=== PATIENT | female | born 1990 | race Caucasian/White ===

== ENCOUNTER 2021-07-20 09:29 | Day surgery (SDC) | payer OTHER ==
[~2021-07-20 09:29] MED LIST: Acetaminophen 500 MG TAB PO PRN; Acetaminophen 500 MG TAB PO SCH; Sodium Chloride 0.9% 1,000 ML IV SCH; diphenhydrAMINE 25 MG CAP PO SCH; diphenhydrAMINE 50 MG/ML VIAL IVP PRN; diphenhydrAMINE 50 MG/ML VIAL IVP SCH
[2021-07-20] MEDS ORDERED: Sodium Chloride 0.9% 20 ML ONE (09:34)
[2021-07-20] MEDS ORDERED: INFLIXIMAB ABDA IV SCH (10:00)
[2021-07-20] MEDS ORDERED: SODIUM CHLORIDE 0.9% IV SCH (10:00)
[2021-07-20 13:40] VITALS: BP 135/79; TEMP 97.9
== END 2021-07-20 13:41 | disposition home or self-care (01) ==
LOC: ONC/OP 09:29
PROVIDERS: ATTEND Internal Medicine Rheumatology
DX: L40.50 Arthropathic psoriasis, unspecified (principal)
CPT/HCPCS: 96413; 96415; J7050; Q5104

== ENCOUNTER 2021-08-04 08:26 | Day surgery (SDC) | payer OTHER ==
[~2021-08-04 08:26] MED LIST changes: +INFLIXIMAB ABDA IV SCH; +INFLIXIMAB-ABDA 486 MG in Sodium Chloride 0.9% 250 ML 201.4 ML IV SCH; +SODIUM CHLORIDE 0.9% IV SCH
[2021-08-04] MEDS ORDERED: Sodium Chloride 0.9% 20 ML ONE (09:07)
[2021-08-04 09:57] VITALS: BP 141/87; TEMP 98.4
== END 2021-08-04 11:36 | disposition home or self-care (01) ==
LOC: ONC/OP 08:26
PROVIDERS: ATTEND Internal Medicine Rheumatology
DX: L40.50 Arthropathic psoriasis, unspecified (principal)
CPT/HCPCS: 96413; 96415; J7050; Q5104

== ENCOUNTER 2021-09-01 11:53 | Day surgery (SDC) | payer OTHER ==
[~2021-09-01 11:53] MED LIST changes: -INFLIXIMAB ABDA IV SCH; -SODIUM CHLORIDE 0.9% IV SCH
[2021-09-01] MEDS ORDERED: Sodium Chloride 0.9% 20 ML ONE (12:05)
[2021-09-01 12:27] VITALS: BP 139/84; TEMP 99
== END 2021-09-01 15:00 | disposition home or self-care (01) ==
LOC: ONC/OP 11:53
PROVIDERS: ATTEND Internal Medicine Rheumatology
DX: L40.50 Arthropathic psoriasis, unspecified (principal)
CPT/HCPCS: 96413; 96415; J7050; Q0163; Q5104

== ENCOUNTER 2024-06-07 16:00 | Outpatient (CLI) | payer OTHER | END 2024-06-07 16:01 | disposition home or self-care (01) | LOC: SLEEPLAB 16:00 | PROVIDERS: ATTEND Family Medicine | DX: G47.33 Obstructive sleep apnea (adult) (pediatric) (principal) | CPT/HCPCS: 95800 ==